=== PATIENT | female | born 1970 | race Caucasian/White ===

== ENCOUNTER 2018-05-29 13:40 | Emergency (ER) | payer MEDICAID ==
[2018-05-29] MEDS: KETOROLAC 60 MG INJ IM (14:55)
[2018-05-29 15:04] LABS: URINE PH (Dip) POC 5.5 (5.0-8.5)
[2018-05-29 15:04] LABS: URINE BLOOD (Dip) POC 1+ (NEGATIVE); URINE GLUCOSE (Dip) POC Negative (NEGATIVE); URINE KETONES (Dip) POC Negative (NEGATIVE); URINE LEUKOCYTE EST (Dip) POC Negative (NEGATIVE); URINE NITRITE (Dip) POC Negative (NEGATIVE); URINE TOTAL PROTEIN POC Trace (NEGATIVE)
== END 2018-05-29 15:36 | disposition home or self-care (01) ==
LOC: FTE 13:40
DX: M54.5 Low back pain (principal)
CPT/HCPCS: 81003; 81025; 96372; 99284-25

== ENCOUNTER → 2019-04-01 | Emergency (ER) | payer OTHER, MEDICAID | END | disposition home or self-care (01) | LOC: FTE 11:46 | DX: J03.90 Acute tonsillitis, unspecified (principal) | CPT/HCPCS: 99283; Z7502 ==